=== PATIENT | female | born 1980 | race Caucasian/White ===

== ENCOUNTER 2020-02-24 15:25 | Emergency (ER) | payer BC, SELFPAY ==
[2020-02-24 15:36] VITALS: BP 149/92; PULSE 67; RESP 18; TEMP 36.8; O2SAT 100
--- NOTE | 2020-02-24 16:02 | ED.ABDPAIN ---
HPI - Abdominal Pain General Chief Complaint: Abdominal Pain Stated Complaint: R/side pain Time Seen by Provider: 02/24/20 15:35 Source: patient and RN notes reviewed Mode of arrival: ambulatory Limitations: no limitations History of Present Illness HPI narrative: Patient presents today complaining of intermittent right upper quadrant pain that she localizes up under her right anterior ribs that has been present for the past 3 weeks. It does not appear at a particular time of day. It does not depend on whether or not she is eating or drinking. She has no exacerbating factors. States sometimes it is worse when she takes a deep breath. Denies nausea, vomiting, cough, or URI symptoms. Reports temperature of 99.8. Denies any urinary symptoms. States she has a diarrhea at baseline, but it is no worse than normal. States she is currently pain-free. She has been occasionally taking ibuprofen without relief. States she has attempted to call and make an appointment with her doctor, but states every time she has tried to call, the office has been closed. Denies history of liver or gallbladder issues. Denies chest pain or shortness of breath. States at times, the pain radiates up her body to her right posterior shoulder. Related Data Home Medications Medication Instructions Recorded Confirmed amlodipine 5 mg PO DAILY 03/30/19 03/30/19 lisinopril 5 mg PO DAILY 03/30/19 03/30/19 sertraline 50 mg PO DAILY 03/30/19 03/30/19 Allergies Allergy/AdvReac Type Severity Reaction Status Date / Time No Known Allergies Allergy Verified 02/24/20 15:55 Review of Systems Review of Systems: Narrative: CONSTITUTIONAL: Denies body aches, fever, chills, or sweats. EYES: Denies visual changes, redness, or discharge. ENT: Denies rhinorrhea, congestion, sore throat, or otalgia. CARDIOVASCULAR: Denies chest pain, palpitations, or edema. RESPIRATORY: Denies cough or dyspnea. GASTROINTESTINAL: Denies nausea, vomiting, or diarrhea. +Intermittent RUQ abdominal pain GENITOURINARY: Denies dysuria or hematuria. SKIN: Denies rash, itching, or wounds. MUSCULOSKELETAL: Denies back pain, joint pain, or myalgia. NEUROLOGIC: Denies headache, numbness, tingling, or weakness. PSYCH: Denies depression or anxiety. [facility] Past Medical History Medical History (Updated 02/24/20 @ 16:35 by Edna Delacruz, IT FIELD TECHNICIAN, ) Anxiety Hypertension Social History Social History Alcohol intake: current Gender identity (if verbalized by the patient): Female Comments At time of signature, I have reviewed and agree with nursing past medical, surgical, social and family history unless otherwise noted. Please see nursing chart for further information. There is no relevant family history pertinent to the presenting complaint Exam Narrative: Exam Narrative: GENERAL: Well-appearing, well-nourished, and in no acute distress. HEAD: Normocephalic, atraumatic. EYES: EOMI. No redness or drainage. Conjunctivae normal. ENT: Mucous membranes pink and moist. NECK: Normal AROM. CHEST: No respiratory distress. Clear to auscultation. Chest is nontender. HEART: Regular rate and rhythm. No murmur appreciated. Normal peripheral pulses. ABDOMEN: Soft, nontender, nondistended, normal active bowel sounds. -CVAT. MUSCULOSKELETAL: No bony tenderness or muscular tenderness of the back. EXTREMITIES: Normal range of motion. No edema. SKIN: Warm, dry, no rash. Capillary refill normal. Normal skin turgor. NEURO: No focal deficits. Alert and oriented x3. Gait steady. PSYCH: Normal affect. No signs of depression or anxiety. Course Vital Signs Vital signs: Vital Signs Temperature 98.3 F 02/24/20 15:36 Pulse Rate 67 02/24/20 15:36 Respiratory Rate 18 02/24/20 15:36 Blood Pressure 149/92 H 02/24/20 15:36 Pulse Oximetry 100 02/24/20 15:36 Temperature 98.3 F 02/24/20 15:36 Pulse Rate 67 02/24/20 15:36 Respiratory Rate 18 02/24/20 15:36 Blood Pres
== END 2020-02-24 16:08 | disposition home or self-care (01) ==
PROVIDERS: Emergency Provider Nurse Practitioner; PCP Chiropractor
DX: R10.11 Right upper quadrant pain (principal); F41.9 Anxiety disorder, unspecified; I10 Essential (primary) hypertension
CPT/HCPCS: 81003; 99212; G0463

== ENCOUNTER 2021-11-25 09:29 | Emergency (ER) | payer OTHER, BC, SELFPAY ==
--- NOTE | ~2021-11-25 | XR_ITS ---
EXAMINATION: XR wrist LT min 3V DATE: 11/25/2021 10:22 INDICATION: Left wrist pain post fall TECHNIQUE: Posteroanterior, ulnar deviation, oblique, and lateral views of the left wrist were obtain ed. COMPARISON: none FINDINGS: Comminuted intra-articular fracture of the distal left radius. Dorsal impaction resulting in 19 degre es dorsal tilt of the distal articular surface. Possible 1 mm lucent fracture gap with one-2 mm maxim al step off at the articular surface. No other fractures identified. Mild osteoarthritis at the first carpometacarpal joint. Mild soft tissue swelling about the wrist and over the dorsum of the carpus. IMPRESSION: 1. Dorsally impacted comminuted intra-articular fracture of the distal left radius. Reviewed, dictated and finalized at location A. IMPRESSION: 1. Dorsally impacted comminuted intra-articular fracture of the distal left rad ius.
--- NOTE | ~2021-11-25 | XR_ITS ---
EXAMINATION: XR sacrum coccyx min 2V DATE: 11/25/2021 10:22 INDICATION: Sacral pain post fall from table. TECHNIQUE: AP, lateral and coned-down cephalad angled AP view of the sacrum and coccyx were obtained. COMPARISON: None. FINDINGS: Bone alignment is normal. No fracture. Mild bilateral hip osteoarthritis. Mild right and mild to mode rate left sacroiliac osteoarthritis. IMPRESSION: 1. No acute osseous abnormality. Reviewed, dictated and finalized at location A.
--- NOTE | ~2021-11-25 | XR_ITS ---
EXAMINATION: XR humerus LT DATE: 11/25/2021 10:23 INDICATION: Left arm pain from the shoulder to the wrist post fall TECHNIQUE: Internal and axillary rotated views of the left humerus were obtained on overlapping proxi mal and distal images. COMPARISON: None. FINDINGS: Alignment is normal. No fracture. Joint spaces are normal at the left elbow and shoulder. Soft tissue s are unremarkable. Left breast implant. 3 cm nodular opacity with smooth sharply defined margins pro jecting over the left breast most likely either a nipple shadow or cyst but would correlate with mamm ography. IMPRESSION: 1. No osseous abnormality. Reviewed, dictated and finalized at location A. IMPRESSION: 1. No osseous abnormality.
--- NOTE | 2021-11-25 09:53 | ED.FALL ---
HPI - Fall General Chief Complaint: Fall Stated Complaint: FALL, L WRIST,SHOULDER,HEAD TAILBONE PAIN Time Seen by Provider: 11/25/21 09:34 History of Present Illness HPI Narrative: 41-year-old female presents to the emergency room after having a fall at school today. She is a teacher. She was standing on a table to try to hang something on the wall. She lost her balance and fell off of the table. She tried to catch herself with her left hand. She has increased pain and swelling in her left wrist. She also landed on her buttock and is currently having pain in her tailbone. She did hit her head against a desk but denies having any headache. No tender spots on her head or laceration. She took ibuprofen prior to coming to the ER. Injury happened just prior to coming to the ER. Related Data Home Medications Medication Instructions Recorded Confirmed amlodipine 5 mg tablet 5 mg PO DAILY 03/30/19 03/30/19 lisinopril 5 mg tablet 5 mg PO DAILY 03/30/19 03/30/19 sertraline 50 mg tablet 50 mg PO DAILY 03/30/19 03/30/19 Allergies Allergy/AdvReac Type Severity Reaction Status Date / Time No Known Allergies Allergy Verified 11/25/21 10:10 Review of Systems Review of Systems: CONSTITUTIONAL: Denies fever, chills, or sweats. EYES: Denies visual changes, redness, or discharge. ENT: Denies rhinorrhea, congestion, sore throat, or otalgia. CARDIOVASCULAR: Denies chest pain, palpitations, or edema. RESPIRATORY: Denies cough or dyspnea. GASTROINTESTINAL: Denies abdominal pain, nausea, vomiting, or diarrhea. GENITOURINARY: Denies dysuria or hematuria. SKIN: Denies rash or itching. MUSCULOSKELETAL: As per HPI NEUROLOGIC: Denies headache, dizziness, or weakness. Left upper extremity feels tingly and hand feels a little numb. PSYCHIATRIC: Denies anxiety or depression. [facility] Past Medical History Medical History Anxiety Hypertension Social History Social History Alcohol intake: current Gender identity (if verbalized by the patient): Female Exam Narrative: GENERAL: Well-appearing, well-nourished, and in no acute distress. HEAD: Normocephalic, atraumatic. EYES: PERRLA and EOMI. NECK: Supple. No adenopathy or masses. No carotid bruits or JVD CHEST: Clear to auscultation. No respiratory distress. No wheezes rales or rhonchi HEART: Regular rate and rhythm. No murmur heard. Normal peripheral pulses. ABDOMEN: Soft, nontender, nondistended, normal active bowel sounds. EXTREMITIES: Notable swelling in the left wrist. Radial and ulnar pulses intact. No obvious deformity. Distal sensation grossly intact. Very limited range of motion of the left wrist. SKIN: Warm, dry, no rash. NEURO: No focal deficits. Alert and oriented x3. PSYCH: Normal mood and affect. Course Course Emergency Course: 1125 I spoke with sindy Galan. Due to complexity of the fracture, patient will need hand specialist. We do not have hand certification engineer today. 1145 Spoke with [facility], they would like us to try another facility because their ER is overwhelmed right now and the hand specialist there was wanting her to go to the ER there today. [address] [facility] at [facility] She feels that patient can be splinted and follow up outpatient as long as there is no compromise to her circulation, which there is not. Dr. Fitzgerald will be able to see patient on Monday for follow up. Vital Signs Vital signs: Vital Signs Temperature 36.7 C 11/25/21 10:05 Pulse Rate 68 11/25/21 10:05 Respiratory Rate 18 11/25/21 10:05 Blood Pressure 126/81 11/25/21 10:05 Pulse Oximetry 100 11/25/21 10:05 Oxygen Delivery Room Air 11/25/21 10:05 Temperature 36.7 C 11/25/21 10:05 Pulse Rate 64 11/25/21 11:36 Respiratory Rate 16 11/25/21 11:36 Blood Pressure 121/81 11/25/21 11:36 Pulse Oximetry 96 11/25/21 11:36 Oxygen Delivery
[2021-11-25 10:05] VITALS: BP 126/81; PULSE 68; RESP 18; TEMP 36.7; O2SAT 100
--- NOTE | 2021-11-25 10:05 | PC.NURSE ---
Pt to XRAY via stretcher at this time.
[2021-11-25] MEDS: HYDROcodone/acetaminophen (*CRX) 7.5-325 MG TABLET 1 TAB PO (10:27)
[2021-11-25 11:36] VITALS: BP 121/81; PULSE 64; RESP 16; O2SAT 96
== END 2021-11-25 13:24 | disposition home or self-care (01) ==
PROVIDERS: Emergency Provider Nurse Practitioner Family; PCP Family Medicine Sports Medicine
DX: S52.572A Other intraarticular fracture of lower end of left radius, initial encounter for closed fracture (principal); S49.92XA Unspecified injury of left shoulder and upper arm, initial encounter; S39.92XA Unspecified injury of lower back, initial encounter; I10 Essential (primary) hypertension; F41.9 Anxiety disorder, unspecified; W08.XXXA Fall from other furniture, initial encounter
CPT/HCPCS: 29125; 72220; 73060; 73110; 99284; A4565; A9270

== ENCOUNTER 2022-06-23 08:30 | Emergency (ER) | payer BC, SELFPAY ==
[2022-06-23 08:46] VITALS: BP 138/95; PULSE 80; RESP 16; TEMP 36.4; O2SAT 97
--- NOTE | 2022-06-23 08:56 | ED.URI ---
HPI - URI/Sore Throat General Chief Complaint: Upper Respiratory Infection Stated Complaint: Sore Throat,Lt Ear Irritation Time Seen by Provider: 06/23/22 08:56 Source: patient Mode of arrival: ambulatory Limitations: no limitations History of Present Illness HPI Narrative: 41-year-old female presents with complaint fullness feeling to left ear the past 2 weeks. Reports that she has had left ear pain and sore throat for the past 2-3 days. Complaining that she is gagging on postnasal drainage. Reports runny nose but no sinus pressure or pain. States she does not have seasonal allergies. Is not taking any [id number] medications to treat her symptoms. Denies fever. No cough, chest congestion or chest pain. All systems reviewed and negative except as noted above. Related Data Home Medications Medication Instructions Recorded Confirmed amlodipine 5 mg tablet 5 mg PO DAILY 03/30/19 03/30/19 lisinopril 5 mg tablet 5 mg PO DAILY 03/30/19 03/30/19 sertraline 50 mg tablet 50 mg PO DAILY 03/30/19 03/30/19 Allergies Allergy/AdvReac Type Severity Reaction Status Date / Time No Known Allergies Allergy Verified 11/25/21 10:10 Review of Systems Review of Systems: CONSTITUTIONAL: Denies fever, chills, or sweats. EYES: Denies visual changes, redness, or discharge. ENT: Reports rhinorrhea, congestion, sore throat, and left ear pain. CARDIOVASCULAR: Denies chest pain, palpitations, or edema. RESPIRATORY: Denies cough or dyspnea. GASTROINTESTINAL: Denies abdominal pain, nausea, vomiting, or diarrhea. GENITOURINARY: Denies dysuria or hematuria. SKIN: Denies rash or itching. MUSCULOSKELETAL: Denies back pain, joint pain, or myalgia. NEUROLOGIC: Denies headache, numbness, or weakness. PSYCHIATRIC: Denies anxiety or depression. All other systems reviewed are negative, except as documented in HPI. [facility] Past Medical History Medical History Anxiety Hypertension Social History Social History Alcohol intake: current Gender identity (if verbalized by the patient): Female Comments At time of signature, agree with nursing past medical, surgical, social and family history. There is no relevant family history pertinent to the presenting complaint. Exam Narrative: GENERAL: This is a well-nourished, well-developed patient, in no apparent distress. HEAD: normocephalic, atraumatic. EYES: PERRL. Sclera clear/white. Vision is grossly intact. EARS: External ears normal, auditory canals clear and without drainage, Right TM normal. fluid to left TM with mild erythema and bulging. No perforation bilaterally. NOSE: External nose normal with Nasal drainage and erythema to both nares. THROAT: Mucous membranes moist, Erythema, mild swelling with postnasal drainage. No exudates. NECK: Neck supple, non-tender without lymphadenopathy, masses or thyromegaly. CARDIOVASCULAR: Regular rate and rhythm without murmurs, gallops, or rubs. RESPIRATORY: Clear to auscultation. Breath sounds equal bilaterally. No wheezes, rales, or rhonchi. SKIN: warm, Dry, intact with no suspicious lesions or rash, good texture and turgor. NEURO: awake, alert, and oriented to person, place and time. There were no obvious focal neurologic abnormalities. EXTREMITIES: No joint tenderness, effusion, or edema noted. Course Course Level of Care: Express Care Visit Vital Signs Vital signs: Vital Signs Temperature 36.4 C 06/23/22 08:46 Pulse Rate 80 06/23/22 08:46 Respiratory Rate 16 06/23/22 08:46 Blood Pressure 138/95 H 06/23/22 08:46 Pulse Oximetry 97 06/23/22 08:46 Oxygen Delivery Room Air 06/23/22 08:46 Temperature 36.4 C 06/23/22 08:46 Pulse Rate 80 06/23/22 08:46 Respiratory Rate 16 06/23/22 08:46 Blood Pressure 138/95 H 06/23/22 08:46 Pulse Oximetry 97 06/23/22 08:46 Oxygen Delivery Room
== END 2022-06-23 09:05 | disposition home or self-care (01) ==
PROVIDERS: Emergency Provider Nurse Practitioner Family; PCP Family Medicine Sports Medicine
DX: H65.02 Acute serous otitis media, left ear (principal); J01.90 Acute sinusitis, unspecified; I10 Essential (primary) hypertension; F41.9 Anxiety disorder, unspecified
CPT/HCPCS: 87081; 87880; 99213; G0463

== ENCOUNTER 2022-09-21 09:17 | Outpatient (CLI) | payer BC, SELFPAY ==
[2022-09-21 09:47] LABS: Basophils Absolute Auto 0.1 K/mm3 (0.0-0.1); Basophils Percent Auto 0.9 % (0.2-1.2); Eosinophils Absolute Auto 0.2 K/mm3 (0-0.3); Eosinophils Percent Auto 3.4 % (0-4.4); Hematocrit 44.9 % (37.0-47.0); Hemoglobin 15.1 g/dL (12.0-15.0); Immature Granulocyte Absolute 0.01 K/mm3 (0.00-0.031); Immature Granulocyte Percent A 0.2 % (0-0.5); Lymphocytes Absolute Auto 1.79 K/mm3 (0.9-3.2); Lymphocytes Percent Auto 31.9 % (18.3-44.2); Mean Corpuscular HGB Conc 33.6 g/dl (32-36); Mean Corpuscular Hemoglobin 32.1 pg (26-34); Mean Corpuscular Volume 95.3 fl (80-100); Mean Platelet Volume 10.3 fl (7.4-10.4); Monocytes Absolute Auto 0.6 K/mm3 (0.1-0.6); Monocytes Percent Auto 10.2 % (2.6-8.5); Neutrophils Percent Auto 53.4 % (45.5-73.1); Platelet Count Result 303 k/mm3 (150-375); Red Blood Count 4.71 M/mm3 (4.2-5.4); Red Cell Distribution Width 12.9 % (11.5-14.5); White Blood Count 5.6 K/mm3 (4.5-10.0)
[2022-09-21 09:50] LABS: Appearance Urine Clear (Clear); Bilirubin Urine Negative (Negative); Blood Urine Negative (Negative); Color Urine Yellow (Yellow); Glucose Urine UA Negative (Negative); Ketones Urine Trace mg/dL (Negative); Leukocyte Esterase Ur Negative LEU/UL (Negative); Nitrate Urine Negative (Negative); Protein Urine Negative (Negative); pH Urine 5.5 (5.0-9.0)
[2022-09-21 10:11] LABS: Alanine Aminotransferase 28 U/L (6-35); Albumin Level 4.6 g/dL (3.5-5.1); Alkaline Phosphatase 53 U/L (38-126); Anion Gap 8 mmol/L (8-16); Aspartate Amino Transferase 27 U/L (14-36); Bilirubin,Total 0.7 mg/dL (0.2-1.3); Blood Urea Nitrogen 11 mg/dL (7-17); Carbon Dioxide 22 mmol/L (22-30); Chloride 106 mmol/L (98-107); Cholesterol 282 mg/dL (0-200); Estimated Glomerular Filt Rate > 60; Glucose 98 mg/dL (65-110); HDL Direct 51 mg/dL; Potassium 4.3 mmol/L (3.4-5.0); Sodium 136 mmol/L (137-145); Triglycerides 141 mg/dL (<150)
[2022-09-21 10:22] LABS: LDL Cholesterol Direct 190 mg/dL
[2022-09-21 10:29] LABS: Free T4 Free Thyroxine 0.98 ng/mL (0.78-2.19); Vitamin D 25 Hydroxy 35.9 ng/mL
[2022-09-21 10:51] LABS: Add Urine Microscopic? NO
[2022-09-21 11:15] LABS: Folic Acid 12.4 ng/mL (2.76->20)
== END 2022-09-21 09:18 | disposition home or self-care (01) ==
LOC: ANHLAB 09:19
PROVIDERS: PCP Family Medicine Sports Medicine; Visit Provider Family Medicine Sports Medicine
DX: Z00.00 Encounter for general adult medical examination without abnormal findings (principal); F17.200 Nicotine dependence, unspecified, uncomplicated; Z13.21 Encounter for screening for nutritional disorder; R53.83 Other fatigue; E55.9 Vitamin D deficiency, unspecified
CPT/HCPCS: 36415; 80053; 80061; 81003; 82306; 82607; 82746; 84439; 84443; 85025

== ENCOUNTER 2023-01-02 15:05 | Emergency (ER) | payer BC, SELFPAY ==
--- NOTE | ~2023-01-02 | XR_ITS ---
EXAMINATION: XR chest 2V Exam Date/Time: 01/02/2023 15:18 CDT HISTORY: cough for 1 week, shortness of breath, back pain Comparison: 08/18/2016. RESULT: Lines, tubes, and devices: None. Lungs and pleura: Clear. Cardiomediastinal silhouette: Stable. Other: No acute osseous or upper abdominal finding. Stable mild anterior wedge deformity at T6 and T 7. IMPRESSION: No acute cardiopulmonary process. Reviewed, dictated and finalized at location K.
[2023-01-02 15:15] VITALS: BP 137/97; PULSE 66; RESP 18; TEMP 36.4; O2SAT 98
--- NOTE | 2023-01-02 15:24 | ED.URI ---
HPI - URI/Sore Throat General Chief Complaint: Upper Respiratory Infection Stated Complaint: chest congestion Time Seen by Provider: 01/02/23 15:19 Source: patient and RN notes reviewed Mode of arrival: ambulatory Limitations: no limitations History of Present Illness HPI Narrative: Patient presents today with a one-week history of cough, fatigue, chest wall pain, midback pain, rhinorrhea, sweats, shortness of breath with exertion. Denies fever. She has been taking ibuprofen without relief and currently rates her pain 7/10. Denies history of asthma or COPD. History of sleep apnea. She is a nonsmoker. Related Data Home Medications Medication Instructions Recorded Confirmed amlodipine 5 mg tablet 5 mg PO DAILY 03/30/19 06/23/22 lisinopril 5 mg tablet 5 mg PO DAILY 03/30/19 06/23/22 sertraline 50 mg tablet 50 mg PO DAILY 03/30/19 06/23/22 Allergies Allergy/AdvReac Type Severity Reaction Status Date / Time No Known Allergies Allergy Verified 06/23/22 09:08 Review of Systems Review of Systems: CONSTITUTIONAL: Denies body aches, fever, chills.+fatigue EYES: Denies visual changes, redness, or discharge. ENT: Denies congestion, sore throat, or otalgia.+ rhinorrhea CARDIOVASCULAR: Denies chest pain, palpitations, or edema. RESPIRATORY: + cough, shortness of breath with exertion, chest wall pain GASTROINTESTINAL: Denies abdominal pain, nausea, vomiting, or diarrhea. GENITOURINARY: Denies dysuria or hematuria. SKIN: Denies rash, itching, or wounds. MUSCULOSKELETAL: Denies joint pain, or myalgia.+ back pain NEUROLOGIC: Denies headache, numbness, tingling, or weakness. PSYCH: Denies depression or anxiety. [facility] Past Medical History Medical History Anxiety Hypertension Social History Social History Alcohol intake: current Gender identity (if verbalized by the patient): Female Comments At time of signature, I have reviewed and agree with nursing past medical, surgical, social and family history unless otherwise noted. Please see nursing chart for further information. There is no relevant family history pertinent to the presenting complaint Exam Narrative: GENERAL: Mildly ill-appearing, well-nourished, and in no acute distress. HEAD: Normocephalic, atraumatic. EYES: EOMI. No redness or drainage. Conjunctivae normal. ENT: Mucous membranes pink and moist. Nares clear. No rhinorrhea. TMs normal bilaterally. Throat normal. Uvula midline. NECK: Normal AROM. Supple. No lymphadenopathy. CHEST: No respiratory distress. Clear to auscultation. HEART: Regular rate and rhythm. No murmur appreciated. Normal peripheral pulses. MUSCULOSKELETAL: No bony tenderness of the spine or bilateral paraspinal muscles of the thoracic or lumbar spine. EXTREMITIES: Normal range of motion. No edema. SKIN: Warm, dry, no rash. Capillary refill normal. Normal skin turgor. NEURO: No focal deficits. Alert and oriented x3. Gait steady. PSYCH: Normal affect. No signs of depression or anxiety. Course Course Level of Care: Express Care Visit Vital Signs Vital signs: Vital Signs Temperature 97.5 F L 01/02/23 15:15 Pulse Rate 66 01/02/23 15:15 Respiratory Rate 18 01/02/23 15:15 Blood Pressure 137/97 H 01/02/23 15:15 Pulse Oximetry 98 01/02/23 15:15 Oxygen Delivery Room Air 01/02/23 15:15 Temperature 97.5 F L 01/02/23 15:15 Pulse Rate 66 01/02/23 15:15 Respiratory Rate 18 01/02/23 15:15 Blood Pressure 137/97 H 01/02/23 15:15 Pulse Oximetry 98 01/02/23 15:15 Oxygen Delivery Room Air 01/02/23 15:15 Reviewed MDM - URI/Sore Throat MDM Narrative Medical decision making narrative: Testing is negative. Chest x-ray negative. Symptoms likely viral in etiology. Will treat with prednisone and albuterol inhaler. Anticipatory guidance given. Differential Diagnosis
== END 2023-01-02 16:02 | disposition home or self-care (01) ==
PROVIDERS: Emergency Provider Nurse Practitioner; PCP Family Medicine Sports Medicine
DX: B34.9 Viral infection, unspecified (principal); Z20.822 Contact with and (suspected) exposure to COVID-19; I10 Essential (primary) hypertension; F41.9 Anxiety disorder, unspecified
CPT/HCPCS: 71046; 87081; 87426; 87804; 87880; 99213; C9803; G0463

== ENCOUNTER 2023-02-10 11:42 | Emergency (ER) | payer BC, SELFPAY ==
[2023-02-10 11:51] VITALS: BP 139/77; PULSE 61; RESP 16; TEMP 36.1; O2SAT 98
--- NOTE | 2023-02-10 12:08 | ED.EYEPROB ---
HPI - Eye Problem General Chief complaint: Eye Problems Stated complaint: Unknown Source: patient, RN notes reviewed and old records reviewed Mode of arrival: ambulatory Limitations: no limitations History of Present Illness HPI Narrative: 42-year-old female presents to [facility] with complaints of right eye redness, tearing, and irritation that started yesterday. Patient denies blurred vision. patient does wear contacts. Patient denies any other complaints at this time MD chief complaint: eye redness Onset (ago): day(s) (1) Duration: constant Location: right eye Eye Symptoms: redness Related Data Home Medications Medication Instructions Recorded Confirmed amlodipine 5 mg tablet 5 mg PO DAILY 03/30/19 02/10/23 lisinopril 5 mg tablet 5 mg PO DAILY 03/30/19 02/10/23 sertraline 50 mg tablet 50 mg PO DAILY 03/30/19 02/10/23 Allergies Allergy/AdvReac Type Severity Reaction Status Date / Time No Known Allergies Allergy Verified 02/10/23 11:55 Review of Systems Review of Systems: All systems reviewed & are unremarkable except as noted in HPI and below Constitutional: Constitutional: Reports no additional constitutional complaints Eyes: Eyes: Reports no additional eye complaints, Denies blind spots, Denies blurry vision, Denies exophthalmos, Denies change in vision, Denies decreased night vision, Denies diplopia, Reports eye discharge, Denies dry eyes, Reports irritation, Denies itchy eyes, Denies loss of peripheral vision, Denies loss of vision, Denies other visual disturbances, Denies eye pain, Reports requires corrective lenses, Denies seeing flashes, Denies photophobia, Denies spots in vision and Denies tunnel vision ENT: Reports system reviewed and no additional complaints, except as documented Cardiovascular: Cardiovascular: Reports no additional cardiovascular complaints Respiratory: Respiratory: Reports no additional respiratory complaints Neurologic: Reports system reviewed and no additional complaints, except as documented [facility] Past Medical History Medical History Anxiety Hypertension Social History Social History Alcohol intake: current Gender identity (if verbalized by the patient): Female Comments At the time of my signature, I reviewed and agree with the nursing past medical, surgical, social, and family history. There is no relevant family history pertinent to the patient complaint. Exam Const: General: cooperative, healthy appearing, no acute distress and well nourished Nutritional Appearance: well nourished Orientation/consciousness: patient oriented x3 Limitations: no limitations HENMT: Head: normal to inspection and normocephalic Ears: external ears normal, TM's normal bilaterally, mastoids normal and Abnormal EAC present Face/Nose/Sinus: normal facial exam Face and sinus: normal facial exam Mouth: Yes Normal oral and palatal mucosa present, Yes oropharynx normal and Yes moist mucous membranes Throat: posterior oropharynx normal, tonsils normal, uvula midline and no uvular edema Eyes: General: appearance normal, both eyes and all related structures Alignment and Position: alignment normal and position normal Periorbital: periorbital findings normal Eyelids: eyelids normal Conjunctivae: conjunctival abnormality right discharge and other ( erythema) Cornea: corneas normal Pupils: Equal, round and reactive pupils present EOM: EOMs intact bilaterally Direct Ophthalmoscopy: normal light reflex and no photophobia Resp: Effort & Inspection: normal respiratory effort, able to speak in complete sentences, no audible wheezes, no cough, no respiratory distress and no retractions Auscultation: clear to auscultation bilaterally, no crackles, no rales, no rhonchi and no wheezes Cardio: Rate: regular rate Rhythm: regular rhythm Skin: General skin exam: normal color and no rash
== END 2023-02-10 12:16 | disposition home or self-care (01) ==
PROVIDERS: Emergency Provider Registered Nurse; PCP Family Medicine Sports Medicine
DX: H10.9 Unspecified conjunctivitis (principal); F41.9 Anxiety disorder, unspecified; I10 Essential (primary) hypertension
CPT/HCPCS: 99213; G0463